=== PATIENT | male | born 1965 | race Caucasian/White ===

== ENCOUNTER → 2019-10-01 13:54 | Outpatient (BNVA) | payer MEDICARE, SELFPAY | PROVIDERS: Family Provider Nurse Practitioner Family; PCP Nurse Practitioner Family; Visit Provider Nurse Practitioner | DX: G89.29 Other chronic pain (principal); M54.16 Radiculopathy, lumbar region; M96.1 Postlaminectomy syndrome, not elsewhere classified; G62.9 Polyneuropathy, unspecified; E11.40 Type 2 diabetes mellitus with diabetic neuropathy, unspecified | CPT/HCPCS: 99213 ==

== ENCOUNTER → 2019-11-28 10:54 | Outpatient (BNVA) | payer MEDICARE, SELFPAY | PROVIDERS: Family Provider Nurse Practitioner Family; PCP Registered Nurse; Visit Provider Anesthesiology | DX: G89.29 Other chronic pain (principal); M54.16 Radiculopathy, lumbar region; M51.36 Other intervertebral disc degeneration, lumbar region; G62.9 Polyneuropathy, unspecified; Z79.891 Long term (current) use of opiate analgesic | CPT/HCPCS: 99213 ==

== ENCOUNTER → 2020-03-17 10:22 | Outpatient (BNVA) | payer MEDICARE, SELFPAY | PROVIDERS: Family Provider Nurse Practitioner Family; PCP Registered Nurse; Visit Provider Anesthesiology | DX: G89.29 Other chronic pain (principal); M51.36 Other intervertebral disc degeneration, lumbar region; M54.16 Radiculopathy, lumbar region; M96.1 Postlaminectomy syndrome, not elsewhere classified; G62.9 Polyneuropathy, unspecified; Z79.891 Long term (current) use of opiate analgesic | CPT/HCPCS: 99214 ==

== ENCOUNTER → 2020-05-18 09:03 | Outpatient (BNVA) | payer MEDICARE, SELFPAY | PROVIDERS: Family Provider Nurse Practitioner Family; PCP Registered Nurse; Visit Provider Nurse Practitioner | DX: M51.36 Other intervertebral disc degeneration, lumbar region (principal); M54.42 Lumbago with sciatica, left side; M54.41 Lumbago with sciatica, right side; M96.1 Postlaminectomy syndrome, not elsewhere classified; G62.9 Polyneuropathy, unspecified; Z79.891 Long term (current) use of opiate analgesic | CPT/HCPCS: 99213 ==

== ENCOUNTER → 2020-07-12 00:01 | Outpatient (BNVA) | payer MEDICARE, SELFPAY | PROVIDERS: Family Provider Nurse Practitioner Family; PCP Registered Nurse; Visit Provider Registered Nurse | DX: N52.9 Male erectile dysfunction, unspecified (principal); E11.9 Type 2 diabetes mellitus without complications; I10 Essential (primary) hypertension | CPT/HCPCS: 80053; 80061; 81000; 83036; 85025 ==

== ENCOUNTER → 2020-07-23 10:15 | Outpatient (BNVA) | payer MEDICARE, SELFPAY | PROVIDERS: Family Provider Nurse Practitioner Family; PCP Registered Nurse; Visit Provider Anesthesiology | DX: G89.29 Other chronic pain (principal); M54.16 Radiculopathy, lumbar region; M51.36 Other intervertebral disc degeneration, lumbar region; M96.1 Postlaminectomy syndrome, not elsewhere classified; Z79.891 Long term (current) use of opiate analgesic | CPT/HCPCS: 99212; 99214 ==

== ENCOUNTER → 2020-09-28 10:12 | Outpatient (BNVA) | payer MEDICARE, SELFPAY | PROVIDERS: Family Provider Nurse Practitioner Family; PCP Registered Nurse; Visit Provider Anesthesiology | DX: G89.29 Other chronic pain (principal); M51.36 Other intervertebral disc degeneration, lumbar region; M54.16 Radiculopathy, lumbar region; M96.1 Postlaminectomy syndrome, not elsewhere classified; Z79.891 Long term (current) use of opiate analgesic | CPT/HCPCS: 99213 ==

== ENCOUNTER → 2020-12-03 10:47 | Outpatient (BNVA) | payer MEDICARE, SELFPAY | PROVIDERS: Family Provider Nurse Practitioner Family; PCP Registered Nurse; Visit Provider Anesthesiology | DX: G89.29 Other chronic pain (principal); M51.36 Other intervertebral disc degeneration, lumbar region; M54.16 Radiculopathy, lumbar region; M96.1 Postlaminectomy syndrome, not elsewhere classified; Z79.891 Long term (current) use of opiate analgesic | CPT/HCPCS: 99213 ==

== ENCOUNTER → 2020-12-08 10:02 | Outpatient (BNVA) | payer MEDICARE, SELFPAY | PROVIDERS: Family Provider Nurse Practitioner Family; PCP Registered Nurse; Visit Provider Registered Nurse | DX: E78.5 Hyperlipidemia, unspecified (principal); E11.9 Type 2 diabetes mellitus without complications; I10 Essential (primary) hypertension | CPT/HCPCS: 80053; 80061; 83036; 85025 ==

== ENCOUNTER → 2021-02-04 10:36 | Outpatient (BNVA) | payer MEDICARE, SELFPAY | PROVIDERS: Family Provider Nurse Practitioner Family; PCP Registered Nurse; Visit Provider Nurse Practitioner | DX: G89.29 Other chronic pain (principal); M51.36 Other intervertebral disc degeneration, lumbar region; M54.16 Radiculopathy, lumbar region; M96.1 Postlaminectomy syndrome, not elsewhere classified; G62.9 Polyneuropathy, unspecified; M79.604 Pain in right leg; M79.605 Pain in left leg; E66.01 Morbid (severe) obesity due to excess calories; Z79.891 Long term (current) use of opiate analgesic | CPT/HCPCS: 99213 ==

== ENCOUNTER → 2021-03-10 10:41 | Outpatient (BNVA) | payer MEDICARE, SELFPAY | PROVIDERS: Family Provider Nurse Practitioner Family; PCP Registered Nurse; Visit Provider Registered Nurse | DX: E11.9 Type 2 diabetes mellitus without complications (principal); I10 Essential (primary) hypertension; N52.9 Male erectile dysfunction, unspecified | CPT/HCPCS: 80053; 81000; 83036 ==

== ENCOUNTER → 2021-04-22 10:36 | Outpatient (BNVA) | payer MEDICARE, SELFPAY | PROVIDERS: Family Provider Nurse Practitioner Family; PCP Registered Nurse; Visit Provider Nurse Practitioner | DX: G89.29 Other chronic pain (principal); M51.36 Other intervertebral disc degeneration, lumbar region; M54.16 Radiculopathy, lumbar region; M96.1 Postlaminectomy syndrome, not elsewhere classified; Z79.891 Long term (current) use of opiate analgesic | CPT/HCPCS: 99214 ==

== ENCOUNTER → 2021-06-17 10:41 | Outpatient (BNVA) | payer MEDICARE, SELFPAY | PROVIDERS: Family Provider Nurse Practitioner Family; PCP Registered Nurse; Visit Provider Nurse Practitioner | DX: G89.29 Other chronic pain (principal); M51.36 Other intervertebral disc degeneration, lumbar region; M54.16 Radiculopathy, lumbar region; M96.1 Postlaminectomy syndrome, not elsewhere classified; G62.9 Polyneuropathy, unspecified; Z79.891 Long term (current) use of opiate analgesic | CPT/HCPCS: 99215 ==

== ENCOUNTER → 2021-07-20 10:27 | Outpatient (BNVA) | payer MEDICARE, SELFPAY | PROVIDERS: Family Provider Nurse Practitioner Family; PCP Registered Nurse; Visit Provider Registered Nurse | DX: E11.9 Type 2 diabetes mellitus without complications (principal); M79.10 Myalgia, unspecified site; E78.5 Hyperlipidemia, unspecified; I10 Essential (primary) hypertension; G62.9 Polyneuropathy, unspecified | CPT/HCPCS: 80053; 81000; 83036; 86618; 86666; 86757 ==

== ENCOUNTER → 2021-09-22 13:10 | Outpatient (BNVA) | payer MEDICARE, SELFPAY | PROVIDERS: Family Provider Nurse Practitioner Family; PCP Registered Nurse; Visit Provider Anesthesiology | DX: G89.29 Other chronic pain (principal); M51.36 Other intervertebral disc degeneration, lumbar region; M54.16 Radiculopathy, lumbar region; M96.1 Postlaminectomy syndrome, not elsewhere classified; G62.9 Polyneuropathy, unspecified; Z79.891 Long term (current) use of opiate analgesic; Z87.891 Personal history of nicotine dependence | CPT/HCPCS: 99213 ==

== ENCOUNTER → 2021-10-18 09:47 | Outpatient (BNVA) | payer MEDICARE, SELFPAY | PROVIDERS: Family Provider Nurse Practitioner Family; PCP Registered Nurse; Visit Provider Registered Nurse | DX: E11.69 Type 2 diabetes mellitus with other specified complication (principal); E78.5 Hyperlipidemia, unspecified; I10 Essential (primary) hypertension | CPT/HCPCS: 80053; 80061; 83036; 85025 ==

== ENCOUNTER → 2022-02-21 10:27 | Outpatient (BNVA) | payer MEDICARE, SELFPAY | PROVIDERS: Family Provider Nurse Practitioner Family; PCP Registered Nurse; Visit Provider Registered Nurse | DX: I10 Essential (primary) hypertension (principal); E11.9 Type 2 diabetes mellitus without complications; M54.12 Radiculopathy, cervical region; G89.29 Other chronic pain | CPT/HCPCS: 80053; 83036 ==

== ENCOUNTER 2022-02-23 13:32 | Outpatient (CLI) | payer MEDICARE, SELFPAY ==
--- NOTE | 2022-02-23 13:45 | MR_ITS ---
WS: [id number] MRI CERVICAL SPINE NONCONTRAST TECHNIQUE: Sagittal T1, T2 and STIR imaging. Axial T2, gradient, and fiesta imaging. CLINICAL INFORMATION: M54.12 - Radiculopathy, cervical region COMPARISON: CT cervical 2016 FINDINGS: Straightening of the normal cervical lordosis. Mild disc bulging C4-C5 and C5-C6 worse at C5-C6. Disc bulging at C4-C5 and C5-C6 appears progressed since the prior CT. Cord signal is normal. C2-C3: Normal. C3-C4: RIGHT eccentric disc osteophyte complex. Severe RIGHT bony foraminal narrowing. Mild LEFT bony foraminal narrowing. Spinal canal is patent. C4-C5: Mild disc osteophyte complex eccentric to the RIGHT. Mild central canal stenosis with slight i ndentation RIGHT ventral cervical cord. Moderate bilateral bony foraminal narrowing. Mild facet arthr opathy. C5-C6: Disc osteophyte complex with endplate ridging. Moderate to severe RIGHT and moderate LEFT bony foraminal narrowing. Mild facet arthropathy. Mild central canal stenosis. C6-C7: Mild disc osteophytic ridging. Moderate RIGHT and mild LEFT bony foraminal narrowing. Mild fac et arthropathy. C7-T1: Mild bilateral bony foraminal narrowing. Spinal canal is patent. Visualized brain stem structures: Normal. Prevertebral soft tissues: Normal. MR/MR cervical spin wo con* [id number] IMPRESSION: 1. Straightening of the normal cervical lordosis. Cord signal is normal. 2. Mild central canal stenosis C4-C5 and C5-C6 with slight contact of the cerv ical cord described above. 3. Severe RIGHT C3-C4 bony foraminal narrowing. 4. Moderate to severe RIGHT greater than LEFT C5-C6 bony foraminal narrowing. 5. Moderate RIGHT C4-C5 and RIGHT C6-C7 bony foraminal narrowing.
== END 2022-02-23 13:33 | disposition home or self-care (01) ==
LOC: RAD 13:34
PROVIDERS: PCP Registered Nurse; Visit Provider Registered Nurse
DX: M54.12 Radiculopathy, cervical region (principal)
CPT/HCPCS: 72141

== ENCOUNTER → 2022-07-04 14:09 | Outpatient (BNVA) | payer MEDICARE, SELFPAY | PROVIDERS: PCP Registered Nurse; Visit Provider Physician Assistant | DX: M47.22 Other spondylosis with radiculopathy, cervical region (principal); M50.20 Other cervical disc displacement, unspecified cervical region; M47.812 Spondylosis without myelopathy or radiculopathy, cervical region | CPT/HCPCS: 72050; 99203 ==

== ENCOUNTER → 2022-07-27 10:39 | Outpatient (BNVA) | payer MEDICARE, SELFPAY | PROVIDERS: PCP Registered Nurse; Visit Provider Anesthesiology Pain Medicine | DX: G89.29 Other chronic pain (principal); M47.22 Other spondylosis with radiculopathy, cervical region; M48.02 Spinal stenosis, cervical region; M51.36 Other intervertebral disc degeneration, lumbar region; M96.1 Postlaminectomy syndrome, not elsewhere classified; M79.601 Pain in right arm | CPT/HCPCS: 99205 ==

== ENCOUNTER → 2022-08-15 10:28 | Outpatient (BNVA) | payer MEDICARE, SELFPAY | PROVIDERS: PCP Registered Nurse; Visit Provider Physician Assistant | DX: M54.12 Radiculopathy, cervical region (principal) | CPT/HCPCS: 99213 ==

== ENCOUNTER → 2022-08-17 09:27 | Outpatient (BNVA) | payer MEDICARE, SELFPAY | PROVIDERS: PCP Registered Nurse; Visit Provider Registered Nurse | DX: E11.9 Type 2 diabetes mellitus without complications (principal); I10 Essential (primary) hypertension; E78.5 Hyperlipidemia, unspecified; E11.69 Type 2 diabetes mellitus with other specified complication; M47.22 Other spondylosis with radiculopathy, cervical region | CPT/HCPCS: 80053; 80061; 83036; 85025 ==

== ENCOUNTER → 2022-08-22 10:18 | Outpatient (BNVA) | payer MEDICARE, SELFPAY | PROVIDERS: PCP Registered Nurse; Visit Provider Anesthesiology Pain Medicine | DX: G89.29 Other chronic pain (principal); M47.22 Other spondylosis with radiculopathy, cervical region; M48.02 Spinal stenosis, cervical region; M51.36 Other intervertebral disc degeneration, lumbar region; M96.1 Postlaminectomy syndrome, not elsewhere classified | CPT/HCPCS: 99214 ==

== ENCOUNTER → 2022-08-31 13:03 | Outpatient (BNVA) | payer MEDICARE, SELFPAY | PROVIDERS: PCP Registered Nurse; Visit Provider Orthopaedic Surgery | DX: M54.12 Radiculopathy, cervical region (principal) | CPT/HCPCS: 99214 ==

== ENCOUNTER 2022-11-22 16:54 | Emergency (ER) | payer MEDICARE, SELFPAY ==
[2022-11-22 16:59] VITALS: BP 148/93; PULSE 84; RESP 17; TEMP 36.7; O2SAT 97; BMI 34.8
--- NOTE | 2022-11-22 17:05 | ECG_ITS ---
[facility] Test Date: 2022-11-22 Pat Name: Rivas Tong Department: Room: Gender: Male Commissary Officer: : 1965 Requested By: Bobby Zhao Order Number: [id number] Melara MD: Briana Ba M.D. Measurements Intervals Morgan Rate: 83 P: 31 MS: 128 QRS: 18 QRSD: 141 T: 31 QT: 367 QTc: 433 Interpretive Statements SINUS RHYTHM RIGHT BUNDLE BRANCH BLOCK [130+ ms QRS DURATION] No previous ECG available for comparison Electronically Signed On 11-23-2022 23:23:56 CHEMICAL ENGINEERING TEACHER by Briana Ba M.D. [email or web address] [email or web address]/store/[id number]
--- NOTE | 2022-11-22 19:06 | XRR_ITS ---
PROCEDURE INFORMATION: Exam: XR Chest Exam date and time: 11/22/2022 7:19 PM Age: 57 years old Clinical indication: Pain; Chest pressure; Additional info: Cp, worse on left side TECHNIQUE: Imaging protocol: Radiologic exam of the chest. Views: 1 view. COMPARISON: CR XR cervical spine 4-5V [id number] 07/04/2022 2:17 PM FINDINGS: Lungs: Unremarkable. No consolidation. Pleural spaces: Unremarkable. No pleural effusion. No pneumothorax. Heart/Mediastinum: Unremarkable. No cardiomegaly. Bones/joints: Unremarkable. XR/XR chest 1V portable [id number] IMPRESSION: No acute findings.
[2022-11-22 19:35] LABS: Basophils # 0.1 10^3/uL (0.0-0.1); Basophils % 0.8 %; Eosinophils # 0.2 10^3/uL (0.0-0.8); Hematocrit 50.8 % (42.0-52.0); Hemoglobin 16.8 g/dL (11.7-16.6); Lymphocytes # 2.1 10^3/uL (0.8-4.8); Lymphocytes % 24.5 %; Mean Corpuscular HGB Conc 33.1 g/dL (30.0-36.0); Mean Corpuscular Hemoglobin 29.9 pg (28.0-34.0); Mean Corpuscular Volume 90.4 fl (80-94); Mean Platelet Volume 9.6 fL (7.4-10.4); Monocytes # 0.8 10^3/uL (0.2-0.9); Monocytes % 9.1 %; Neutrophils # 5.43 10^3/uL (1.8-7.7); Neutrophils % 63.3 %; Nucleated Red Blood Cells % 0 %; Platelet Count 344 10^3/cmm (130-400); Red Blood Count 5.62 10^6/uL (4.1-5.3); Red Cell Distribution Width 13.5 % (12.1-15.1); White Blood Count 8.6 10^3/uL (4.0-10.0)
[2022-11-22 19:49] LABS: INR 0.88 (0.8-1.2)
[2022-11-22 19:55] LABS: Troponin(5th) Baseline 17 ng/L (0-15)
[2022-11-22 19:58] LABS: Alanine Aminotransferase 20 U/L (0-41); Albumin Level 5.2 g/dL (3.5-5.2); Alkaline Phosphatase 74 U/L (40-130); Anion Gap 19.2 (5-19); Aspartate Amino Transferase 18 U/L (0-40); Blood Urea Nitrogen 28 mg/dL (6-20); Calcium 10.6 mg/dL (8.5-10.5); Carbon Dioxide 24 mmol/L (22-29); Chloride 98 mmol/L (98-107); Globulin 3.1 g/dL (1.3-4.6); Glomerular Filtration Rate 62.4 mL/min (90-130); Glucose 108 mg/dL (65-115); Osmolality Calculated 290 mOsm/kg (285-295); Potassium 4.2 mmol/L (3.5-5.1); Sodium 137 mmol/L (136-145); Total Bilirubin 0.3 mg/dL (0.15-1.2); Total Protein 8.3 g/dL (6.6-8.7)
[2022-11-22 20:34] VITALS: BP 149/87; PULSE 86; RESP 18; TEMP 36.7; O2SAT 97
[2022-11-22 21:03] VITALS: BP 173/108; PULSE 85; RESP 16; O2SAT 100
--- NOTE | 2022-11-22 21:06 | ECG_ITS ---
[facility] Test Date: 2022-11-22 Pat Name: Rivas Tong Department: Room: Gender: Male Salt Refiner: : 1965 Requested By: Kaitlynn Bonilla Order Number: [id number] Saritha MD: Briana Ba M.D. Measurements Intervals Emma Rate: 79 P: 33 WV: 148 QRS: 30 QRSD: 145 T: 26 QT: 389 QTc: 448 Interpretive Statements SINUS RHYTHM INTRAVENTRICULAR CONDUCTION DELAY [130+ ms QRS DURATION] POSSIBLE LATERAL MYOCARDIAL INFARCTION , OF INDETERMINATE AGE [30 ms Q WAVE IN I/aVL/V5/V6] Compared to ECG 11/22/2022 17:05:28 Myocardial infarct finding now present Electronically Signed On 11-23-2022 23:47:53 JELLY FILTER TENDER by Briana Ba M.D. [id number]
--- NOTE | 2022-11-22 21:10 | W.ED.CHESTPA ---
HPI - Chest Pain General: Chief Complaint: Chest Pain Stated Complaint: chest/left side pain 3days Time Seen by Provider: 11/22/22 21:02 Source: patient Mode of arrival: ambulatory Limitations: no limitations History of Present Illness: 57-year-old male states has been having a burning pain in his left chest for the last 3 days he states its been fairly constant states the pain is currently a 2 out of 10. Has a history of high blood pressure he denies any vomiting denies any shortness of breath denies any worsening with exertion he denies any diaphoresis. Associated symptoms: Deny abdominal pain, dyspnea, fever(s), nausea or vomiting Review of Systems Const: Denies: fever(s), chills, body aches or change in appetite Eyes: Denies: blurry vision or eye discomfort ENMT: Denies: throat pain or dental pain Card: Reports: chest pain Resp: Denies: dyspnea GI: Denies: abdominal pain, nausea, vomiting or diarrhea : Denies: dysuria Musc: Denies: neck pain or back pain Skin/Breast: Denies: rash Neuro: Denies: headache(s) Psych: Denies: depression Jose Antonio/Lymph: Denies: easy bruising All/Imm: Denies: urticaria PFSH ED PFSH: Medical History Cellulitis of arm, right Chronic low back pain DDD (degenerative disc disease), lumbar Depression Diabetic neuropathy Encounter for long-term (current) use of NSAIDs Erectile dysfunction Essential hypertension Failed back syndrome, lumbosacral Long-term use of high-risk medication Lumbar radiculitis Morbid obesity Polyneuropathy Type 2 diabetes mellitus Surgical History H/O Spinal surgery L4-5 DISCECTOMY 1996, SPINAL FUSION 03/[address] [facility] [address] SÁNCHEZ. Hx of fracture left knee patella-age 17 S/P carpal tunnel release BILATERAL 2009 S/P cholecystectomy Family History Mother Hypertension Grandfather Stroke grandmother Grandfather Alzheimer disease grandmother-moms side Other Cancer Diabetes Osteoporosis Social History Smoking and tobacco status: never smoked Second hand smoke exposure: No Alcohol intake: former Former alcohol use details: 27 years ago Physical Exam Const: COMMON NORMALS: no acute distress, patient oriented x3 and healthy appearing HENMT: COMMON NORMALS: normocephalic and atraumatic HEAD & SCALP: normocephalic and atraumatic Eye: COMMON NORMALS: Equal, round and reactive pupils present and EOMs intact bilaterally PUPIL: Yes Equal, round and reactive pupils present Neck/C-Spine: COMMON NORMALS: full ROM and supple Chest: COMMONS NORMALS: normal inspection of the chest and normal palpation of entire chest wall Resp: COMMON NORMALS: normal respiratory effort, No retractions, No use of accessory muscles and clear to auscultation bilaterally AUSCULTATION: clear to auscultation bilaterally Cardio: COMMON NORMALS: regular rate, regular rhythm and No murmurs present (Cardio) RATE: regular rate RHYTHM: regular rhythm GI: COMMON NORMALS: Normal to inspection, nondistended, normoactive bowel sounds present, Soft to palpation, non-tender and no masses PALPATION: Yes Soft to palpation Extremity: COMMON NORMALS: normal to inspection and full ROM Neuro: COMMON NORMALS: patient oriented x3, moves all extremities and no focal motor deficits Psych: COMMON NORMALS: mental status grossly normal, Normal thought process present and cooperative THOUGHT PROCESS: Normal thought process present Skin: COMMON NORMALS: no rashes or lesions noted and no wounds GENERAL SKIN EXAM: no rashes or lesions noted Course Vital Signs: Vital signs: Vital Signs Temperature 98.0 F 11/22/22 20:34 Pulse Rate 78 11/22/22 22:31 Respiratory Rate 16 11/22/22 22:31 Blood Pressure 138/80 11/22/22 22:31 Pulse Oximetry 92 11/22/22 22:31 Oxygen Delivery Me thod 11/22/22 21:03 MDM - Chest Pain Medical Decision Making Patient presents here with chest pain is atypical in nature his repeat troponin here is normal he is no signs of dissection or pulmonary embolism he is to follow-up with PCP and return if worsening he understands agrees to plan. Lab Data 11/22/22 19:26 11/22/22 19:26 Radiology Impressions Chest X-Ray 11/22/22 19:06 IMPRESSION: No acute findings. Laboratory Results WBC 8.6 10^3/uL (4.0-10.0) 11/22/22 19: RBC 5.62 10^6/uL (4.1-5.3) H 11/22/22 19: Hgb 16.8 g/dL (11.7-16.6) H 11/22/22 19: Hct 50.8 % (42.0-52.0) 11/22/22 19: MCV 90.4 fl (80-94) 11/22/22 19: MCH 29.9 pg (28.0-34.0) 11/22/22 19: MCHC 33.1 g/dL (30.0-36.0) 11/22/22 19: RDW 13.5 % (12.1-15.1) 11/22/22 19: Plt Count 344 10^3/cmm (130-400) 11/22/22 19: MPV 9.6 fL (7.4-10.4) 11/22/22 19: Neut % (Auto) 63.3 % 11/22/22 19:26 Lymph % (Auto) 24.5 % 11/22/22 19:26 [place] % (Auto) 9.1 % 11/22/22 19: Eos % (Auto) 2.0 % 11/22/22 19: Baso % (Auto) 0.8 % 11/22/22 19: Neut # (Auto) 5.43 10^3/uL (1.8-7.7) 11/22/22 19: Lymph # (Auto) 2.1 10^3/uL (0.8-4.8) 11/22/22 19:26 [place] # (Auto) 0.8 10^3/uL (0.2-0.9) 11/22/22 19: Eos # (Auto) 0.2 10^3/uL (0.0-0.8) 11/22/22 19: Baso # (Auto) 0.1 10^3/uL (0.0-0.1) 11/22/22 19:26 Nucleated RBC % (auto) 0 % 11/22/22 19: Nucleated RBCs # 0.0 /100WBC 11/22/22 19: PT 12.20 SECONDS (12.1-14.9) 11/22/22 19:26 INR 0.88 (0.8-1.2) 11/22/22 19:26 Sodium 137 mmol/L (136-145) 11/22/22 19:26 Potassium 4.2 mmol/L (3.5-5.1) 11/22/22 19:26 Chloride 98 mmol/L (98-107) 11/22/22 19:26 Carbon Dioxide 24 mmol/L (22-29) 11/22/22 19:26 Anion Gap 19.2 (5-19) H 11/22/22 19:26 BUN 28 mg/dL (6-20) H 11/22/22 19:26 Creatinine 1.2 mg/dL (0.7-1.2) 11/22/22 19:26 GFR Calculation 62.4 mL/min (90-130) L 11/22/22 19:26 Glucose 108 mg/dL (65-115) 11/22/22 19:26 Calculated Osmolality 290 mOsm/kg (285-295) 11/22/22 19:26 Calcium 10.6 mg/dL (8.5-10.5) H 11/22/22 19:26 Total Bilirubin 0.3 mg/dL (0.15-1.2) 11/22/22 19:26 AST 18 U/L (0-40) 11/22/22 19:26 ALT 20 U/L (0-41) 11/22/22 19:26 Alkaline Phosphatase 74 U/L (40-130) 11/22/22 19:26 Troponin T Baseline 17 ng/L (0-15) H 11/22/22 19:26 Troponin T 120 Minute 11.36 ng/L (0-15) 11/22/22 21:55 Total Protein 8.3 g/dL (6.6-8.7) 11/22/22 19:26 Albumin 5.2 g/dL (3.5-5.2) 11/22/22 19:26 Globulin 3.1 g/dL (1.3-4.6) 11/22/22 19:26 EKG Data EKG 1: I personally reviewed and interpreted this EKG as follows: EKG interpretation date: 11/22/22 EKG interpretation time: 17:05 Interpretation: nsr hr [address] or t wave abnormalitis qrs 141 qtc 407 EKG 2: I personally reviewed and interpreted this EKG as follows: EKG interpretation date: 11/22/22 EKG interpretation time: 21:07 Interpretation: nsr hr [address] or t wave abnormalities qrs 145 qtc 424 Discharge Plan Discharge Patient Disposition: Home Clinical Impression: Chest pain Condition: Stable Prescriptions: No Action Men's 50 Plus Multivitamin 400-20-370 mcg tablet 1 tab PO ONCE sildenafil [Viagra] 100 mg tablet 100 mg PO ONCE PRN (Reason: sexual activity) Qty: 30 3RF Rx Instructions: 340B Jardiance 10 mg tablet 10 mg PO DAILY 90 Days Qty: 90 1RF metformin 1,000 mg tablet 1,000 mg PO BID 30 Days Qty: 60 2RF lisinopril 10 mg tablet See Rx Instructions .ROUTE .COMPLEX Qty: 90 0RF Hold Instructions: Doctor's Order Dose Instruction: Take 1 tablet by mouth once daily Rx Instructions: Take 1 tablet by mouth once daily sulfamethoxazole-trimethoprim [Bactrim DS] 800-160 mg tablet 1 tab PO BID 5 Days Qty: 10 0RF glipizide 5 mg tablet See Rx Instructions .ROUTE .COMPLEX Qty: 60 0RF Dose Instruction: Take 1 tablet by mouth twice daily Rx Instructions: Take 1 tablet by mouth twice daily Discharge Orders: Discharge ED (Routine); Ordered 11/22/22 Ordered By: Kaitlynn Bonilla Referrals: Hitesh Call, MACHINIST HELPER MARINE [Primary Care Provider] - 1-3 days Discharge Diet: Advance as tolerated Discharge Activity: Resume usual activity Patient Instructions: Chest Pain (ED) Coding Level of Care Code ED Denture Packer for Debi Arreola
[2022-11-22] MEDS: aspirin 81 mg Chew Tablet 324 MG PO (21:12)
[2022-11-22] MEDS: pantoprazole DR 40 mg Tablet PO (21:12)
[2022-11-22 22:19] LABS: Troponin 5 2HR 11.36 ng/L (0-15)
[2022-11-22 22:31] VITALS: BP 138/80; PULSE 78; RESP 16; O2SAT 92
[2022-11-22 23:18] LABS: Troponin 5 2HR Delta -5.64 ABS# (0-10)
== END 2022-11-22 22:32 | disposition home or self-care (01) ==
PROVIDERS: Emergency Provider Emergency Medicine; PCP Registered Nurse
DX: R07.9 Chest pain, unspecified (principal); Z79.84 Long term (current) use of oral hypoglycemic drugs; E11.9 Type 2 diabetes mellitus without complications; I10 Essential (primary) hypertension
CPT/HCPCS: 36415; 71045; 80053; 84484; 85025; 85610; 93005; 99285

== ENCOUNTER → 2022-11-24 10:09 | Outpatient (BNVA) | payer MEDICARE, SELFPAY | PROVIDERS: PCP Registered Nurse; Visit Provider Registered Nurse | DX: E11.69 Type 2 diabetes mellitus with other specified complication (principal); E78.5 Hyperlipidemia, unspecified | CPT/HCPCS: 83036 ==

== ENCOUNTER 2022-12-15 12:31 | Outpatient (CLI) | payer MEDICARE, SELFPAY ==
--- NOTE | 2022-12-15 | ECG_ITS ---
[facility] Test Date: 2022-12-15 Pat Name: Rivas Tong Department: Room: Gender: Male Administrative Appeals Tribunal Member: : 1965 Requested By: Hitesh Call Order Number: [id number] Melara MD: Eriwn Jama M.D. Interpretive Statements NAME OF STUDY: TREADMILL STRESS TEST INDICATION: [Chest Pain, ] EXERCISE DATA: The patient was exercised by Benjamin protocol. Baseline heart rate was 90 beats per minute. Baseline blood pressure was 155/105 millimeters of mercury. Target heart rate was 138 beats per minute. Maximum heart rate achieved was 146 which was 105% of the target heart rate. Maximum blood pressure was 172/85 millimeters of mercury. Total exercise time was 5 minutes and 7 seconds. Maximum METs achieved was 7. The reason for ending the test was maximal effort achieved. The patient complained of chest pain during the stress test, which then resolved at the end of the test. ELECTROCARDIOGRAM: BASELINE: Showed sinus rhythm, incomplete right bundle branch block, no significant ST-T changes at the baseline noted. [] EXERCISE: At the peak exercise level, [] 2mm ST depressions noted in the inferior leads during exercise. RECOVERY: During the recovery period, heart rate dropped appropriately. No significant ST-T changes in the recovery suggestive of ischemia noted. Frequent PVCs were noted [] CONCLUSION: 1. Exercise capacity fair 2. Heart rate response was appropriate 3. Blood pressure response was appropriate 4. Symptoms suggestive of ischemia. 5. Stress test is abnormal and has ST depressions noted in inferior leads at exercise,consistent with ischemia Electronically Signed On 12-24-2022 15:51:24 CDT by Erwin Jama M.D. [id number]
[2022-12-15 13:23] VITALS: BMI 36.1
[2022-12-15 13:49] VITALS: BP 149/90; PULSE 84
== END 2022-12-15 12:32 | disposition home or self-care (01) ==
PROVIDERS: PCP Registered Nurse; Visit Provider Registered Nurse
DX: R07.9 Chest pain, unspecified (principal)
CPT/HCPCS: 93017

== ENCOUNTER → 2023-02-13 13:32 | Outpatient (BNVA) | payer MEDICARE, SELFPAY | PROVIDERS: PCP Registered Nurse; Visit Provider Internal Medicine | DX: R07.9 Chest pain, unspecified (principal); E78.5 Hyperlipidemia, unspecified; I10 Essential (primary) hypertension; E11.9 Type 2 diabetes mellitus without complications | CPT/HCPCS: 93005; 99204 ==

== ENCOUNTER 2023-02-19 08:46 | Outpatient (CLI) | payer MEDICARE, SELFPAY ==
[2023-02-19 09:13] LABS: Basophils # 0.1 10^3/uL (0.0-0.1); Basophils % 0.7 %; Eosinophils # 0.4 10^3/uL (0.0-0.8); Eosinophils % 5.2 %; Hemoglobin 14.8 g/dL (11.7-16.6); Lymphocytes # 2.5 10^3/uL (0.8-4.8); Lymphocytes % 35.1 %; Mean Corpuscular HGB Conc 33.6 g/dL (30.0-36.0); Mean Corpuscular Hemoglobin 29.8 pg (28.0-34.0); Mean Corpuscular Volume 88.5 fl (80-94); Monocytes # 0.6 10^3/uL (0.2-0.9); Monocytes % 7.9 %; Neutrophils # 3.57 10^3/uL (1.8-7.7); Neutrophils % 50.7 %; Nucleated Red Blood Cells % 0 %; Platelet Count 258 10^3/cmm (130-400); Red Blood Count 4.97 10^6/uL (4.1-5.3); White Blood Count 7.1 10^3/uL (4.0-10.0)
[2023-02-19 09:35] LABS: Anion Gap 16.2 (5-19); Blood Urea Nitrogen 20 mg/dL (6-20); Calcium 9.4 mg/dL (8.5-10.5); Carbon Dioxide 27 mmol/L (22-29); Chloride 102 mmol/L (98-107); Glucose 212 mg/dL (65-115); Osmolality Calculated 299 mOsm/kg (285-295); Potassium 5.2 mmol/L (3.5-5.1); Sodium 140 mmol/L (136-145)
[2023-02-19 09:36] LABS: INR 0.85 (0.83-1.21); Prothrombin Time (Patient) 11.9 Seconds (12.0-15.1)
== END 2023-02-19 08:47 | disposition home or self-care (01) ==
LOC: LAB 02-20 06:24
PROVIDERS: PCP Registered Nurse; Visit Provider Internal Medicine
DX: I10 Essential (primary) hypertension (principal); R58 Hemorrhage, not elsewhere classified
CPT/HCPCS: 36415; 80048; 85025; 85610; J1644; J2250; J3010; J7030

== ENCOUNTER 2023-02-20 06:21 | Day surgery (SDC) | payer MEDICARE, SELFPAY ==
[2023-02-20] VITALS (12 sets, daily range): BP systolic 133–169; BP diastolic 87–108; PULSE 63–86; RESP 16–20; TEMP 36.9; O2SAT 91–97; BMI 36.5
--- NOTE | 2023-02-20 06:00 | XACV_ITS ---
Exam Room: 2 Ht: 704 cm Wt: 33 kg BSA: 2.14 m2 Gender: Male : 1965 Any Known Allergies: Penicillins Exam Priority: Routine Procedure(s): Procedure Description: Diagnostic procedure Procedure Description: Left Heart Catheterization Procedure Description: Left ventriculography Procedure Description: Coronary Angiography Diagnostic Cath Status: Elective Diagnostic Findings * INDICATION: 57-year-old man with past medical history of diabetes and hypertension has been having chest pain episodes and went to the emergency room. He had a stress test done which showed inferior lead ST depressions consistent with ischemia. Plan for coronary angiogram with possible percutaneous coronary intervention. * Left Main: minimal 30% stenosis, YAMILETH: 3 flow. * Proximal Left Anterior Descending to Mid Left Anterior Descending: significant 80% stenosis, YAMILETH: 3 flow. * Distal Right Coronary Artery: critical 95% stenosis, YAMILETH: 3 flow. * Proximal Circumflex: obstructive 60% stenosis, YAMILETH: 3 flow. * Coronary angiography shows right dominance. Conclusions 1. Severe multivessel coronary artery disease. 2. Normal left ventricular systolic function. Ejection fraction of 50%. Recommendations * Given patient's age, history of diabetes and multivessel coronary artery disease, he would benefit from coronary artery bypass surgery. We will refer to tertiary care center for coronary artery bypass surgery evaluation. * Continue aspirin. * ER warning symptoms are discussed with the patient. * Outpatient cardiology follow-up in 1 to 2 weeks. Interventional RX Recommendation: CABG Diagnostic RX Recommendation: CABG Anticoagulation: Heparin Ventriculography Ejection Fraction: 50.0 % Pressures Phase:Rest AO : 140 / 77 ( 104 ) @ 9:09:00 AM 141 / 78 ( 104 ) @ 9:09:00 AM LV : 150 / -13 / 12 @ 9:08:00 AM 145 / -15 / 13 @ 9:09:00 AM 144 / -13 / 12 @ 9:09:00 AM Valves Phase:DefaultPhase AV : 4.0 @ 8:18:14 AM 4.0 @ 8:18:14 AM AV Mean Gradient: 16.0 @ 8:18:14 AM 16.0 @ 8:18:14 AM Clinical Evaluation EBL: 5mL-10mL Procedural Details Procedure Consent Obtained. Pre-Procedure Time Out. Identified patient by full name and date of as verbalized by the patient/guarantor. Does the consent match the physician's order: Yes. Accurate & Complete Informed Consent: Yes. Inpatient/Outpatient History & Physical on Chart: Yes. If H&P is completed, is and addenduem needed: No. Visualize and Verify Site with Patient/Guarantor: N/A. Relevant Radiology Images available: Yes. Pre-op teaching completed and patient verbalized understanding. The risks, benefits, and alternatives of sedation and/or procedure were discussed by physician. The patient agrees to continue. Procedure started. [facility] Clinical Fraility Score: 3: Managing Well. Safety Equipment Tester Indications: New Onset Angina/CP/Abnormal stress test. Chest Pain Symptom Assessment: Atypical Angina. Cardiovascular Instability: No. Correct patient, site and procedure confirmed by cath team. Current diagnosis: Chest Pain. PERRLA. Strong, equal hand hotel superintendent bilaterally. Lungs clear x 5 lobes. IV Site on Arrival: 20 gauge in the left anticubital. IV Fluids: 0.9% NaCl at KVO. 0 mL infused prior to lab instructor. Pre Procedural Pulses: bilateral dorsalis pedis was 3+. Pre Procedural Pulses: bilateral posterior tibial was 1+. Pre Procedural Pulses: right radial was 1+. Pre Procedural Pulses: left radial was 3+. Oxygen started at 2liters/min via nasal canula. bilateral groins was prepped with chloroprep then draped in the usual sterile fashion. Physician notified. Baseline sample Acquired. HR: 69 BPM. Patient's spouse in CPRU room 4. Dr. Jama will update at the completionof the procedure. Equipment: 6F - Femoral. Cardiac Cath Pack. ACIST Manifold Kit Model BT 2000. Heparinized Saline (2 units/mL), 1000 mL bag. Kit, Micropuncture. Physician arrived. Physician scrubbed in. Immediate Pre-Procedure Time Out. Correct Patient: Yes; Correct Procedure: Yes; Correct Site: Yes; Correct Patient Position: Yes; Correct Supplies: Yes; Dried Flammable Prep: Yes; Blood Products Available: N/A;. Lidocaine 1% infiltrated to the right groin. Arterial access obtained with micropuncture set. Unable to advance micropuncture wire. Needle and wire out, Wiley Bang holding pressure. Arterial access obtained with micropuncture set. Unable to advance micropuncture dilator. Lidocaine 1% infiltrated to the right groin. A 5 [place] JL4 catheter in over the standard J wire. Multiple views taken of left coronary artery. Catheter removed over the standard J wire. Catheter redirected to the RCA. Multiple views taken of right coronary artery. Catheter removed over the standard J wire. A 5 [place] Angled Pig catheter in over the standard J wire. EDP Sample taken: LV 150/-14,12; HR: 81 BPM; SpO2: 96%. LV gram performed in [place] @ 10 mL/second for a total of 30 mL. EDP Sample taken: LV 145/-16,13; HR: 86 BPM; SpO2: 95%. Pullback taken: LV 144/-14,12; AO 140/77(104); Mean: 16mmHg, Peak to Peak: 4mmHg, SEP: 19sec/min; HR: 83 BPM; SpO2: 95%. Catheter removed over the standard wire. A Right femoral angiogram was performed to determine safe placement of closure device. A Suture was successful obtaining hemostatsis at the Right Femoral artery insertion site. Sheath(s) sutured into position with 2-0 silk and sterile 4x4's and Op-site applied over the site. No oozing or signs and symptoms of hematoma noted. Sheath to be pulled upon arrival to CPRU at DR. Jama's request. Post Procedure: Pulses reassessed and unchanged. PERRLA. Strong, equal hand hotel superintendent bilaterally. No VTE prophylaxis required. Medication's Wasted: Heparin = 1000 Units. Medication's Wasted: Other = Versed 1 mg. Medication's Wasted: Other = Fentanyl 25 mcg. Total IV fluids: 40 mL. Post-op diagnosis: Severe 3V disease. Complications: none. Estimated blood loss: 5mL-10mL. Responsiveness - Normal response to verbal stimuli; alert and oriented, PERRLA. Airway - Unaffected, no intervention required; spontaneous ventilation. Circulation: W/N/L, pulses unchanged. Nausea/Vomiting: No. Procedure completed. Patient transferred by bed to CPRU. Vital chart was stopped. Access Site Site: Right Femoral artery Sheath Size: 6 Fr Hemostasis Method: Suture Hemostasis Success: Successful Procedure Medications Start: 7:47 AM Stop: 7:47 AM Medication: Fentanyl Amount: 50 mcg Route: I.V. Start: 7:51 AM Stop: 7:51 AM Medication: Versed Amount: 1 mg Route: I.V. Start: 7:51 AM Stop: 7:51 AM Medication: Fentanyl Amount: 25 mcg Route: I.V. I, the attending physician, have reviewed and verified all procedure medications. Yes, all medications given per verbal order History/Risk Factors Hypertension: Yes Dyslipidemia: Yes Peripheral Arterial Disease (PAD): No Myocardial Infarction (VA): No Obesity: Yes Renal Disease: No Tobacco Use: Never Prior Interventions PCI: No CABG: No Valve Surgery: No Report Signatures Finalized by Erwin Jama MD on 02/25/2023 02:29 PM
[2023-02-20] MEDS: diphenhydrAMINE 50 mg Capsule PO (06:47)
[2023-02-20] MEDS: aspirin 325 mg Tablet PO (06:47)
--- NOTE | 2023-02-20 07:42 | P.HPUD_ITS ---
Surgery/Procedure H&P Update DATE OF PROCEDURE: February 20, 2023 DATE H&P PERFORMED: 02/13/23 H&P UPDATE INFORMATION: I have reviewed H&P completed within last 30 days, I have examined patient prior to procedure and No changes to prior documentation PREOP DIAGNOSIS: Chest pain/abnormal stress test PRIMARY INDICATION FOR PROCEDURE: Chest pain/abnormal stress test PLANNED PROCEDURE: Operation Date: 02/20/23 07:00 Proposed Procedures p [facility] 23943 R94.39(Left) - Erwin Jama M.D Possible percutaneous coronary intervention PATIENT REASSESSED PRIOR TO SEDATION, WITH NO CHANGE NOTED: Yes PHYSICAL EXAM: alert, oriented x 3, clear to auscultation bilaterally and regu lar rate & rhythm AIRWAY EVAL/ANESTHESIA PLAN: normal airway, ASA III, Local Anesthesia, Risks, benefits & alternatives of sedation and/or procedure discussed and Patient agree s to continue as planned ADDITIONAL INFORMATION: Moderate sedation
--- NOTE | 2023-02-20 08:30 | SUR.PHASEI ---
SHEATH PULL Patient brought back to CPRU-4 for immediate recovery. Report to Suzi RN by tuan JACOB. I flushed sheath and proceeded with pull. Manual pressure held at site for 20 minutes. Patient did move slightly during the immediate pull and developed a small hematoma at the sheath insertion site. I restablished hemostasis while Tuan expressed hematoma wiith gentle massage. At the 20 minute janel site pressure was released completely and assessed. No hematoma formation noted and the hematoma he developed is soft/supple at this point- Site hematoma marked. Approximately a golf ball sized. Patient/ was given verbal post cath instructions, which they understood. Call light placed within reach. Informed to call for needs.
--- NOTE | 2023-02-20 09:23 | PC.NURSE ---
around 0815 cpru nurse received pt from odd job laborer post [facility]. pt sleepy but able to wake. pt complains of no pain. right femoral sheath in place and plans to pull as soon as possible per orders. pt placed on monitor and will be monitored per protocol. plans to recover in csu until dc.
[2023-02-20 10:36] LABS: Glucose Point of Care 202 mg/dL (70-110)
[2023-02-20 11:23] LABS: Glucose Point of Care 183 mg/dL (70-110)
[2023-02-20] MEDS: insulin lispro 100 unit/1 mL SUBCUT ×2 (11:40→17:38)
[2023-02-20] MEDS: oxyCODONE-APAP 10-325 mg Tablet 1 TAB PO (12:26)
[2023-02-20 16:56] LABS: Glucose Point of Care 324 mg/dL (70-110)
--- NOTE | 2023-02-20 18:07 | PC.NURSE ---
Patients IV removed at 17:50, patient tolerated well. vitals stable. Patient and given written and verbal discharge education on meds and appointments made, patient verbalized understanding. Patient taken out to parking lot via wheelchair. Patient left facility with at 18:00.
== END 2023-02-20 18:00 | disposition home or self-care (01) ==
LOC: CCL 10:58 → CSU 10:59
PROVIDERS: PCP Registered Nurse; Visit Provider Internal Medicine
DX: I25.10 Atherosclerotic heart disease of native coronary artery without angina pectoris (principal); R07.9 Chest pain, unspecified; R94.39 Abnormal result of other cardiovascular function study; E11.9 Type 2 diabetes mellitus without complications; I10 Essential (primary) hypertension; E78.5 Hyperlipidemia, unspecified; E66.9 Obesity, unspecified; Z68.36 Body mass index [BMI] 36.0-36.9, adult
CPT/HCPCS: 36415; 36416; 82962; 93458; 96365; 96372; 99152; 99153; C1769; C1887; C1894; J1644; J1815; J2250; J3010; J7030; Q0163; Q9967

== ENCOUNTER → 2023-03-01 08:43 | Outpatient (BNVA) | payer MEDICARE, SELFPAY | PROVIDERS: PCP Registered Nurse; Visit Provider Nurse Practitioner Family | DX: I25.10 Atherosclerotic heart disease of native coronary artery without angina pectoris (principal); I10 Essential (primary) hypertension | CPT/HCPCS: 36415; 80048; 99214 ==

== ENCOUNTER → 2023-05-31 12:30 | Outpatient (BNVA) | payer MEDICARE, SELFPAY | PROVIDERS: PCP Registered Nurse; Visit Provider Internal Medicine | DX: I25.10 Atherosclerotic heart disease of native coronary artery without angina pectoris (principal); I10 Essential (primary) hypertension; E11.69 Type 2 diabetes mellitus with other specified complication; Z79.84 Long term (current) use of oral hypoglycemic drugs; E78.5 Hyperlipidemia, unspecified | CPT/HCPCS: 99214 ==

== ENCOUNTER 2023-06-08 12:35 | Outpatient (CLI) | payer MEDICARE, SELFPAY ==
--- NOTE | 2023-06-08 13:00 | USCV_ITS ---
Rivas Tong Age: 57 Gender: M : 1965 Exam Date: 06/08/2023 13:39 Ordering Phys: Erwin Jama M.D ([email or web address]) Technologist: LEDY [place] [facility] [place]: SHORTNESS OF BREATH BP: 120 / 80 HR: 76 Rhythm: Sinus Technical Quality: Technically difficult study MEASUREMENTS (Male / Female) Normal Values 2D ECHO LVOT Diameter 2.0 cm LV Ejection Fraction MOD 2C 54.2 % LV Ejection Fraction 2C AL 54.5 % LA Diameter 3.6 cm LA Width 3.1 cm LA Height 4.0 cm RA Width 3.6 cm RA Height 3.9 cm Aorta at Sinotubular Diameter 2.9 cm M-MODE Aortic Annulus Diameter 3.3 cm LA Ao Ratio MM 0.7 MV E Point Septal Separation 0.4 cm DOPPLER AV Peak Velocity 106.0 cm/s LVOT Peak Velocity 95.0 cm/s AV Area Cont Eq vti 2.7 cm squared AV Area Cont Eq pk 2.9 cm squared MV Peak Velocity 80.0 cm/s MV Area PHT 3.3 cm squared Mitral E to A Ratio 0.8 MV E' Velocity 33.5 cm/s Mitral E to MV E' Ratio 6.3 Mitral E to LV E' Lateral Ratio 5.5 Mitral E to LV E' Septal Ratio 7.4 TR Peak Velocity 153.5 cm/s TR Peak Gradient 9.4 mmHg TR Mean Velocity 111.9 cm/s TR Mean Gradient 5.8 mmHg TR Velocity Time Integral 35.0 cm TV Peak E Velocity 54.0 cm/s Right Atrial Pressure 8.0 mmHg Pulmonary Artery Systolic Pressu 17.4 mmHg PV Peak Velocity 78.0 cm/s RV Acceleration Time 0.1 s RV Ejection Time 0.3 s RV AcT/ET 0.3 FINDINGS Left Ventricle Left ventricle is normal in size. LV systolic function is mildly decreased with EF of 45-50%, Mild global hypokinesis seen. Right Ventricle Not well visualized Right Atrium Not well visualized Left Atrium Not well visualized Mitral Valve Not well-visualized. Trace mitral regurgitation. Aortic Valve Not well visualized. No significant stenosis or regurgitation seen. Tricuspid Valve Not well visualized Pulmonic Valve Not well visualized Pericardium Not well visualized Aorta Normal in size IVC Appears to be normal CONCLUSIONS Technically limited quality echocardiogram because of poor ultrasonic windows. LV systolic function is mildly reduced with EF of 45 to 50%. Mild global hypokinesis. Valvular structures are not well-visualized. No comparison studies are available. Erwin Jama MD (Electronically Signed) Final Date: 17 June 2023 13:03 S
[2023-06-08] MEDS: perflutren protein-a microsphr 0.22 mg/mL SDV 3 mL IV (14:42)
== END 2023-06-08 12:36 | disposition home or self-care (01) ==
PROVIDERS: PCP Registered Nurse; Visit Provider Internal Medicine
DX: R06.02 Shortness of breath (principal)
CPT/HCPCS: C8929; Q9956

== ENCOUNTER → 2023-06-14 10:54 | Outpatient (BNVA) | payer MEDICARE, SELFPAY | PROVIDERS: PCP Registered Nurse; Visit Provider Registered Nurse | DX: E11.69 Type 2 diabetes mellitus with other specified complication (principal); E78.5 Hyperlipidemia, unspecified; Z79.1 Long term (current) use of non-steroidal anti-inflammatories (NSAID) | CPT/HCPCS: 80053; 80061; 82043; 83036; 85025 ==

== ENCOUNTER 2023-08-22 13:00 | Outpatient (CLI) | payer MEDICARE, SELFPAY | END 2023-08-22 13:01 | disposition home or self-care (01) | LOC: SLEEP 08-23 14:32 | PROVIDERS: PCP Registered Nurse; Visit Provider Registered Nurse | DX: G47.33 Obstructive sleep apnea (adult) (pediatric) (principal) | CPT/HCPCS: G0399 ==

== ENCOUNTER → 2023-09-14 11:09 | Outpatient (BNVA) | payer MEDICARE, SELFPAY | PROVIDERS: PCP Registered Nurse; Visit Provider Registered Nurse | DX: E11.69 Type 2 diabetes mellitus with other specified complication; E78.5 Hyperlipidemia, unspecified; G47.33 Obstructive sleep apnea (adult) (pediatric) | CPT/HCPCS: 83036 ==

== ENCOUNTER → 2023-11-29 14:55 | Outpatient (BNVA) | payer MEDICARE, SELFPAY | PROVIDERS: PCP Registered Nurse; Visit Provider Internal Medicine | DX: I25.10 Atherosclerotic heart disease of native coronary artery without angina pectoris (principal); I10 Essential (primary) hypertension; E11.69 Type 2 diabetes mellitus with other specified complication; Z79.84 Long term (current) use of oral hypoglycemic drugs; E78.5 Hyperlipidemia, unspecified | CPT/HCPCS: 99214 ==

== ENCOUNTER 2024-02-07 10:32 | Outpatient (CLI) | payer MEDICARE, SELFPAY ==
--- NOTE | 2024-02-07 10:40 | MR_ITS ---
WS: [id number] MRI LUMBAR SPINE NONCONTRAST TECHNIQUE: Sagittal T1, T2 and STIR imaging. Axial T1 and T2 imaging. CLINICAL INFORMATION: FAILED BACK SYNDROME,LUMBAR/DDD COMPARISON: None. FINDINGS: Mild lumbar curve. No acute compression. Disc bulging worse at L3-L4 L4-L5 and L5-S1. Pedicle screw f ixation T12-L3 with laminectomy defects. T12-L1: Slight retrolisthesis T12 on L1. Mild disc bulging. Laminectomy defects. Spinal canal and for amen are patent. L1-L2: Mild disc bulging. Laminectomy defects. Spinal canal and foramen are patent. L2-L3: Mild disc bulging. Laminectomy defects. Spinal canal and foramen appear patent. L3-L4: Mild disc bulging with moderate to severe central canal stenosis. Impingement on the traversin g L4 nerve roots bilaterally. Moderate facet arthropathy. Moderate RIGHT and mild LEFT foraminal narr owing. L4-L5: Mild disc bulging with moderate central canal stenosis. Impingement of the LEFT subarticular r ecess and traversing LEFT L5 nerve root. Moderate facet arthropathy. Small bilateral foraminal protru sions with mild LEFT greater than RIGHT foraminal narrowing. L5-S1: Mild disc bulging with slight impingement of traversing S1 nerve roots bilaterally. Mild centr al canal stenosis. Moderate facet arthropathy. Mild LEFT foraminal narrowing. Visualized pelvic bony structures: Normal. Paravertebral soft tissues: Normal. MR/MR lumbar spine wo con* [id number] IMPRESSION: 1. Prior postoperative changes pedicle screw fixation T12-L3 with laminectomy defects. 2. Moderate to severe central canal stenosis L3-4 due to disc bulge and facet arthropathy and ligamentum flavum hypertrophy. Impingement subarticular recess at this level. 3. Moderate central canal stenosis L4-5 and mild central canal stenosis L5-S1. 4. Mild to moderate foraminal narrowing worse at RIGHT L3-4, bilateral L4-5, a nd LEFT L5-S1. 5. Moderate facet arthropathy L3-L5.
--- NOTE | 2024-02-07 10:40 | MR_ITS ---
WS: [id number] MRI CERVICAL SPINE NONCONTRAST TECHNIQUE: Sagittal T1, T2 and STIR imaging. Axial T2, gradient, and fiesta imaging. Patient deferred contrast due to history of renal problems CLINICAL INFORMATION: CERVICAL SPONDYLOSIS W/RADICULOPATHY COMPARISON: 2021 FINDINGS: Straightening of normal cervical lordosis. Mild disc bulging worse at C4-C5 and C5-6. Cord signal is normal C2-C3: Mild facet arthropathy. Spinal canal and foramina are patent. C3-C4: Disc osteophyte complex eccentric to the RIGHT with severe RIGHT foraminal narrowing unchanged . C4-C5: Mild LEFT bony foraminal narrowing. Disc osteophyte complex with endplate ridging. Moderate RI GHT and mild LEFT bony foraminal narrowing. Mild facet arthropathy. Mild central canal stenosis with slight contact of the RIGHT ventral cervical cord. C5-C6: Disc osteophyte protrusion with slight contact of the cervical cord. Mild central canal stenos is. Severe LEFT greater than RIGHT bony foraminal narrowing. Moderate facet arthropathy. Uncovertebra l joint hypertrophy. C6-C7: Minimal disc bulging. Moderate bilateral bony foraminal narrowing. Mild facet arthropathy. C7-T1: Moderate LEFT and mild RIGHT bony foraminal narrowing. Spinal canal is patent. Mild facet arth ropathy. Visualized brain stem structures: Normal. Prevertebral soft tissues: Normal. MR/MR cervical spin wo con* [id number] IMPRESSION: 1. No significant changes since 2021. 2. Mild central canal stenosis C4-C5 and C5-C6 with slight indentation of the cervical cord unchanged. 3. Moderate to severe bony foraminal narrowing worse at RIGHT C3-C4, RIGHT C4- 5, and bilateral C5-6
== END 2024-02-07 10:33 | disposition home or self-care (01) ==
PROVIDERS: PCP Registered Nurse; Visit Provider General Practice
DX: M47.22 Other spondylosis with radiculopathy, cervical region (principal); M96.1 Postlaminectomy syndrome, not elsewhere classified; M51.36 Other intervertebral disc degeneration, lumbar region; M99.63 Osseous and subluxation stenosis of intervertebral foramina of lumbar region; M99.64 Osseous and subluxation stenosis of intervertebral foramina of sacral region; M48.08 Spinal stenosis, sacral and sacrococcygeal region; Z96.698 Presence of other orthopedic joint implants
CPT/HCPCS: 72141; 72148

== ENCOUNTER → 2024-04-03 08:54 | Outpatient (BNVA) | payer MEDICARE, SELFPAY | PROVIDERS: PCP Registered Nurse; Visit Provider Registered Nurse | DX: E11.9 Type 2 diabetes mellitus without complications (principal) | CPT/HCPCS: 80053; 82607; 83036; 85025 ==

== ENCOUNTER 2024-04-07 11:38 | Outpatient (CLI) | payer MEDICARE, SELFPAY ==
--- NOTE | 2024-04-07 11:46 | XR_ITS ---
WS: [id number] RIGHT SHOULDER: 3 VIEW(S) TECHNIQUE: Internal and external rotation with Y view. HISTORY: Right-sided shoulder pain. No injury. COMPARISON: 02/05/2016 No fracture or dislocation or soft tissue abnormality. Glenohumeral and AC joints are unremarkable. XR/XR shoulder RT min 2V* [id number] IMPRESSION: Normal RIGHT shoulder.
== END 2024-04-07 11:39 | disposition home or self-care (01) ==
PROVIDERS: PCP Registered Nurse; Visit Provider Nurse Practitioner Family
DX: M54.12 Radiculopathy, cervical region (principal)
CPT/HCPCS: 73030

== ENCOUNTER → 2024-06-05 11:05 | Outpatient (BNVA) | payer MEDICARE, SELFPAY | PROVIDERS: PCP Registered Nurse; Visit Provider Internal Medicine | DX: I25.10 Atherosclerotic heart disease of native coronary artery without angina pectoris (principal); I10 Essential (primary) hypertension; E11.69 Type 2 diabetes mellitus with other specified complication; E78.5 Hyperlipidemia, unspecified | CPT/HCPCS: 99214 ==

== ENCOUNTER → 2024-09-01 09:51 | Outpatient (BNVA) | payer MEDICARE, SELFPAY | PROVIDERS: PCP Registered Nurse; Visit Provider Registered Nurse | DX: E11.9 Type 2 diabetes mellitus without complications (principal) | CPT/HCPCS: 80053; 80061; 83036; 85025 ==

== ENCOUNTER → 2024-11-27 10:45 | Outpatient (BNVA) | payer MEDICARE, SELFPAY | PROVIDERS: PCP Registered Nurse; Visit Provider Registered Nurse | DX: E11.9 Type 2 diabetes mellitus without complications (principal) | CPT/HCPCS: 80053; 81000; 82607; 83036; 85025 ==

== ENCOUNTER → 2024-12-04 12:55 | Outpatient (BNVA) | payer MEDICARE, SELFPAY | PROVIDERS: PCP Registered Nurse; Visit Provider Internal Medicine | DX: R07.9 Chest pain, unspecified (principal); R06.02 Shortness of breath; I25.10 Atherosclerotic heart disease of native coronary artery without angina pectoris; E11.9 Type 2 diabetes mellitus without complications; I10 Essential (primary) hypertension; E11.69 Type 2 diabetes mellitus with other specified complication; E78.5 Hyperlipidemia, unspecified | CPT/HCPCS: 99214 ==

== ENCOUNTER 2024-12-26 07:35 | Outpatient (CLI) | payer MEDICARE, SELFPAY ==
[2024-12-26 07:52] VITALS: BMI 41.3
--- NOTE | 2024-12-26 07:52 | ECG_ITS ---
Giveter Test Date: 2024-12-26 Pat Name: Rivas Tong Department: Room: Gender: Male [employer]er: : 1965 Requested By: Erwin Jama Order Number: [id number] Saritha MD: Briana Ba M.D. Interpretive Statements Lung unchanged pre/post procedure; Intraprocedure shortess of breath; ; Symptoms resoled by discharge PROCEDURE: At the baseline, the EKG revealed sinus rhythm with a right bundle branch block pattern. The baseline heart was 78 bpm with a blood pressue of 114/70 mm of Hg Lexiscan was infused over a period of 20 seconds. A total of 0.4 milligrams of Lexiscan was infused. The stress phase was continued for a total of 5 minutes. Heart rate at the end of the stress phase was 83 bpm with a blood pressure 160/99 mm of Hg. The EKG at the peak infusion revealed no significant changes. Sestamibi was injected 20 seconds after the Lexiscan infusion. Heart rate at the end of the recovery phase was 82 bpm with a blood pressure of 153/89 mm of Hg. CONCLUSION: 1. No significant EKG changes with the LexiScan infusion 2. No LexiScan induced chest pain or cardiac arrhythmia 3. Normal blood pressure and heart rate response 4. Sestamibi/sestamibi perfusion scan pending; see separate report. Electronically Signed On 12-26-2024 13:58:55 CDT by Briana Ba M.D. [email or web address]
--- NOTE | 2024-12-26 07:53 | NMCV_ITS ---
NM marcy perf SPECT r/s* [id number] Rivas Tong Age: 59 Gender: M : 1965 Exam Date: 12/26/2024 09:00 Ordering Phys: Erwin Jama M.D ([email or web address]) Technologist: LEE ANN Us Exam Location: [facility] Indications: cp STRESS TEST [facility] IMAGE PROTOCOL Rest/Stress 1 Lexiscan Day Radiopharmaceutical Dose (mCi) Administration Site Administered by Rest: Tc-99m 10.9 IV Melida Nieto, [employer] OPERATOR Sestamibi Stress:Tc-99m 32.5 IV Melida Nieto, [employer]ACHINE OPERATOR Sestamibi Rest: 26-Dec-2024 60 Discovery 630 Stress: 26-Dec-2024 30 Discovery 630 0.4mg Lexiscan. Supine position only as patient was unable to lay prone. SPECT RESULTS Technical Quality: Good Raw Data Analysis: Normal Image Corrections: No attenuation or motion correction applied Summed Stress Score: 0 Summed Rest Score: 1 Summed Difference Score: 0 PERFUSION FINDINGS Uniform myocardial tracer uptake with no significant Perfusion abnormalities. FUNCTIONAL RESULTS (calculated via Gated SPECT) Stress Image LV EF (%): 59 Stress EDV (mL):115 TID: 0.94 Stress ESV (mL):47 FUNCTIONAL FINDINGS: Segmental wall motion analysis revealing no gross wall motion abnormalities IMPRESSIONS 1. Fairly uniform myocardial tracer uptake with no significant perfusion abnormalities. 2. Normal LV ejection fraction of 59%. 3. LV wall motion analysis revealing no gross wall motion abnormalities. 4. The LV volume, upper limit of normal. Low probability for coronary ischemia, based on the above findings Dr rBiana Ba MD FACC (Electronically Signed) Final Date: 26 December 2024 11:20 S
[2024-12-26] MEDS: regadenoson 0.4 Mg/5 ml Syringe IVP (09:58)
[2024-12-26] MEDS: aminophylline 25 mg/mL SDV 20 mL IVP (10:16)
[2024-12-26 10:24] VITALS: BP 145/90; PULSE 78
== END 2024-12-26 07:36 | disposition home or self-care (01) ==
PROVIDERS: PCP Registered Nurse; Visit Provider Internal Medicine
DX: R07.9 Chest pain, unspecified (principal); R06.02 Shortness of breath
CPT/HCPCS: 36415; 78452; 93017; 96374; 96375; A9500; J0280; J2785

== ENCOUNTER → 2025-02-26 10:18 | Outpatient (BNVA) | payer MEDICARE, SELFPAY | PROVIDERS: PCP Registered Nurse; Visit Provider Registered Nurse | DX: E11.9 Type 2 diabetes mellitus without complications (principal) | CPT/HCPCS: 80048; 83036 ==

== ENCOUNTER → 2025-06-09 13:04 | Outpatient (BNVA) | payer MEDICARE, SELFPAY | PROVIDERS: PCP Registered Nurse; Visit Provider Internal Medicine | DX: I25.10 Atherosclerotic heart disease of native coronary artery without angina pectoris (principal); I10 Essential (primary) hypertension; E11.69 Type 2 diabetes mellitus with other specified complication; E78.5 Hyperlipidemia, unspecified; Z79.4 Long term (current) use of insulin; Z79.84 Long term (current) use of oral hypoglycemic drugs | CPT/HCPCS: 99214 ==